=== PATIENT | female | born 1990 | race African-American/Black ===

== ENCOUNTER 2019-10-19 17:39 | Emergency (ER) | payer OTHER, SELFPAY ==
--- NOTE | 2019-10-19 18:11 | ER ---
Nurse's Notes [facility] Name: Valeri Altamirano Age: 29 yrs Sex: Female : 1990 Arrival Date: 10/19/2019 Time: 17:42 Bed 17 Private MD: Diagnosis: Acute pharyngitis;Dental root caries Presentation: 10/19 17:44 Presenting complaint: Patient states: throat, left tonsil, left upper back tooth and jl7 left ear started hurting last night and is worse today. Transition of care: patient was not received from another setting of care. Onset of symptoms was October 18, 2019. Risk Assessment: Do you want to hurt yourself or someone else? Patient reports no desire to harm self or others. Initial Sepsis Screen: Does the patient meet any 2 criteria? No. Patient's initial sepsis screen is negative. Does the patient have a suspected source of infection? No. Patient's initial sepsis screen is negative. Care prior to arrival: None. 17:44 Method Of Arrival: Ambulatory [facility] 17:44 Acuity: MALIK 4 jl7 Triage Assessment: 17:46 General: Appears in no apparent distress. uncomfortable, Behavior is calm, cooperative, jl7 appropriate for age. Pain: Complains of pain in upper left third molar Pain currently is 8 out of 10 on a pain scale. EENT: Reports pain when swallowing Pain is 8 out of 10 on a pain scale. 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 - Social history:: Smoking status: Patient uses tobacco products, smokes one-half pack cigarettes per day. - Ebola Screening: : No symptoms or risks identified at this time. Screenin:06 Abuse screen: Denies threats or abuse. Denies injuries from another. Nutritional bp screening: No deficits noted. Tuberculosis screening: No symptoms or risk factors identified. Fall Risk None identified. Assessment: 17:46 General: SEE TRIAGE NOTE. bp 18:23 Reassessment: PT D/C HOME AMBULATORY WITH FAMILY, DX WITH PHARYNGITIS AND DENTAL ROOT bp CARIES. Vital Signs: 17:46 BP 120 / 84; Pulse 64; Resp 16 S; Temp 98.6(O); Pulse Ox 100% on R/A; Pain 8/10; jl7 18:23 BP 132 / 75; Pulse 76; Resp 16; Temp 98.5; Pulse Ox 99% ; bp ED Course: 17:42 Patient arrived in ED. as 17:46 Triage completed. jl7 17:46 Arm band placed on right wrist. Patient placed in an exam room, on a stretcher, in view jl7 of staff members. 17:59 John Pearce MD is Attending Physician. sonido 17:59 Ananda Oropeza PA is PHCP. jrLurdes 18:06 Jd Pastor, RN is Primary Nurse. bp 18:06 Patient has correct armband on for positive identification. Bed in low position. Call bp light in reach. Side rails up X2. 18:23 No provider procedures requiring assistance completed. Patient did not have IV access bp during this emergency room visit. Administered Medications: 18:10 Drug: TORadol - Ketorolac 15 mg Route: IM; Site: left deltoid; bp 18:25 Follow up: Response: Pain is decreased bp Outcome: 18:10 Discharge ordered by . chelsea 18:24 Discharged to home ambulatory, with family. bp 18:24 Condition: stable 18:24 Discharge instructions given to patient, Instructed on discharge instructions, follow up and referral plans. medication usage, Demonstrated understanding of instructions, follow-up care, medications, Prescriptions given X 1. 18:25 Patient left the ED. bp Signatures: John Pearce MD MD cha Martinez, Amelia as Roszak, Josh, PA PA jrWilliam Nunez, RITA RN jlJd Guzman, RN RN bp
--- NOTE | 2019-10-19 18:11 | EDPHYS ---
Physician Documentation [facility] Name: Valeri Altamirano Age: 29 yrs Sex: Female : 1990 Arrival Date: 10/19/2019 Time: 17:42 Bed 17 Private MD: ED Physician John Pearce HPI: 10/19 18:07 This 29 yrs old Black Female presents to ER via Ambulatory with complaints of Toothache.jr8 18:07 The patient presents with pain, redness, swelling. The problem is located in the mouth. jr8 Onset: The symptoms/episode began/occurred acutely, today. Modifying factors: The symptoms are alleviated by nothing, the symptoms are aggravated by chewing, cold fluids, food. Associated signs and symptoms: Pertinent positives: pain, tonsilar pain on left side. Severity of symptoms: At their worst the symptoms were moderate, in the emergency department the symptoms are unchanged. It is unknown whether or not the patient has had similar symptoms in the past. The patient has not recently seen a physician. 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 - Social history:: Smoking status: Patient uses tobacco products, smokes one-half pack cigarettes per day. - Ebola Screening: : No symptoms or risks identified at this time. ROS: 18:07 Constitutional: Negative for fever, chills, and weight loss. jr8 18:07 ENT: Positive for Gum pain sore throat, Teeth pain 18:07 All other systems are negative. Exam: 18:07 Eyes: Pupils equal round and reactive to light, extra-ocular motions intact. Lids and jr8 lashes normal. Conjunctiva and sclera are non-icteric and not injected. Cornea within normal limits. Periorbital areas with no swelling, redness, or edema. Neck: Trachea midline, no thyromegaly or masses palpated, and no cervical lymphadenopathy. Supple, full range of motion without nuchal rigidity, or vertebral point tenderness. No Meningismus. Cardiovascular: Regular rate and rhythm with a normal S1 and S2. No gallops, murmurs, or rubs. Normal PMI, no JVD. No pulse deficits. Respiratory: Lungs have equal breath sounds bilaterally, clear to auscultation and percussion. No rales, rhonchi or wheezes noted. No increased work of breathing, no retractions or nasal flaring. Abdomen/GI: Soft, non-tender, with normal bowel sounds. No distension or tympany. No guarding or rebound. No evidence of tenderness throughout. Back: No spinal tenderness. No costovertebral tenderness. Full range of motion. Skin: Warm, dry with normal turgor. Normal color with no rashes, no lesions, and no evidence of cellulitis. MS/ Extremity: Pulses equal, no cyanosis. Neurovascular intact. Full, normal range of motion. Neuro: Awake and alert, GCS 15, oriented to person, place, time, and situation. Cranial nerves II-XII grossly intact. Motor strength 5/5 in all extremities. Sensory grossly intact. Cerebellar exam normal. Normal gait. 18:07 ENT: Exam is negative for earache, ear discharge, TM abnormalities, nasal discharge, Mouth: Lips: moist, Oral mucosa: pink and intact, moist, Gums: pink, Tongue: is moist, Posterior pharynx: Airway: patent, Tonsils: with erythema, Uvula: midline, swelling, is not appreciated, erythema, that is mild, Dental exam: Poor dentition with diffuse cavities and dental decay noted. Gum swelling to lower left jaw noted without abscess formation . Vital Signs: 17:46 BP 120 / 84; Pulse 64; Resp 16 S; Temp 98.6(O); Pulse Ox 100% on R/A; Pain 8/10; jl7 18:23 BP 132 / 75; Pulse 76; Resp 16; Temp 98.5; Pulse Ox 99% ; bp MDM: 17:59 Patient medically screened. [facility] 18:09 Data reviewed: vital signs, nurses notes, and as a result, I will discharge patient. jr8 Data interpreted: Pulse oximetry: on room air is 100 %. Interpretation: normal. Counseling: I had a detailed discussion with the patient and/or guardian regarding: the historical points, exam findings, and any diagnostic results supporting the discharge/admit diagnosis, the need for outpatient follow up, a dentist, to return to the emergency department if symptoms worsen or persist or if there are any questions or concerns that arise at home. Administered Medications: 18:10 Drug: TORadol - Ketorolac 15 mg Route: IM; Site: left deltoid; bp 18:25 Follow up: Response: Pain is decreased bp Disposition: 10/20 10:32 Co-signature as Attending Physician, John Pearce MD I agree with the assessment and sonido plan of care. Disposition: 10/19/19 18:10 Discharged to Home. Impression: Acute pharyngitis, Dental root caries. - Condition is Stable. - Discharge Instructions: Dental Caries, Adult, Pharyngitis. - Prescriptions for Amoxicillin 875 mg Oral Tablet - take 1 tablet by ORAL route every 12 hours for 10 days; 20 tablet. - Medication Reconciliation Form, Thank You Letter, Antibiotic Education, Prescription Opioid Use form. - Follow up: Private Physician; When: 1 week; Reason: Recheck today's complaints, Continuance of care, Re-evaluation by your physician. - Problem is new. - Symptoms have improved. Signatures: Jhon Pearce MD MD cha Roszak, Josh, PA PA jr8 William Victoria, RN RN jl7 Jd Pastor, RN RN bp Corrections: (The following items were deleted from the chart) 10/19 18:25 18:10 10/19/2019 18:10 Discharged to Home. Impression: Acute pharyngitis; Dental root bp caries. Condition is Stable. Forms are Medication Reconciliation Form, Thank You Letter, Antibiotic Education, Prescription Opioid Use. Follow up: Private Physician; When: 1 week; Reason: Recheck today's complaints, Continuance of care, Re-evaluation by your physician. Problem is new. Symptoms have improved. jr8
[2019-10-19] MEDS ORDERED: KETOROLAC 30 MG/ML INJ ONE (18:12)
[2019-10-19 21:46] VITALS: BP 132/75; TEMP 98.5; O2SAT 99
== END 2019-10-19 18:25 | disposition home or self-care (01) ==
LOC: ER 17:39
DX: K02.7 Dental root caries (principal); J02.9 Acute pharyngitis, unspecified; F17.210 Nicotine dependence, cigarettes, uncomplicated
CPT/HCPCS: 96372; 99283

== ENCOUNTER 2020-06-02 19:35 | Emergency (ER) | payer SELFPAY ==
--- OUTSIDE RECORDS SUMMARY | 2020-06-02 19:37 | XMS REPORT | Continuity of Care Document ---
:1990 Author Organization [facility] t Address [address] [place] [address] Care Team Providers Name Role Phone Unavailable Unavailable Unavailable Problems Condition Condition Condition Status Onset Resolution Last Treating Co mments Source Name Details Category Date Date Treatment Clinician Date Acute Acute Problem Active [facility] cervicitis Cervicitis 5-24 da 00:00: Medical 00 Group Family Family Problem Active [facility] history of History of 5-03 da anencephal Anencephal 00:00: Me dical y y 00 Group Problem Active [facility] 5-03 da 00:00: Medical 00 Group Late entry Late Entry Problem Active [facility] into into 5-03 da 00:00: Medica l care Care 00 Group Problem Active [facility] screening Screening 5-03 da 00:00: Medical 00 Group Threatened Threatened Problem Active [facility] premature Premature 5-19 da labor - Labor - 00:00: Medical not Not 00 Group delivered Delivered 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 Social History Smoking Status Start Date Stop Date Source Light Tobacco Smoker [facility]ique [facility] Medications Ordered Filled Start Stop Current Ordering Indication Dosage Frequency Signature Comments Components Source Medication Medication Date Date Medication? Clinician (SIG) Name Name Freddy CitraNatal No 1dose Q1D CitraNatal [facility] Assure 35 Assure 35 pk(s) Assure 35 da mg iron-1 mg iron-1 mg iron-1 Medical mg-50 mg-50 mg-50 Group mg-300 mg mg-300 mg mg-300 mg oral pack oral pack oral pack Take 1 dose Take 1 dose Take 1 pk every pk every dose pk day by oral day by oral every day route as route as by oral directed. directed. route as directed. clindamycin clindamycin No 1capsul TID clindamyci [facility] HCl 300 mg HCl 300 mg e(s) n HCl 300 da capsule capsule mg capsule Med ical Take 1 Take 1 Take 1 Group capsule 3 capsule 3 capsule 3 times a day times a day times a by oral by oral day by route for 7 route for 7 oral route days. days. for 7 days. Vital Signs Vital Name Observation Time Observation Value Comments Source BP Diastolic 2019-04-11 00:00:00 64 [facility]Hg[facility] Height 2019-04-11 00:00:00 60 [in_i] [facility] BMI (Body Mass 2019-04-11 00:00:00 25.6 kg/m2 [facility]) Group BP Systolic 2019-04-11 00:00:00 105 mm[Hg] [facility] Body Weight 2019-04-11 00:00:00 131 [lb_av] [facility] BP Diastolic 2019-03-28 00:00:00 55 mm[Hg] [facility] Height 2019-03-28 00:00:00 60 [in_i] [facility] BP Systolic 2019-03-28 00:00:00 93 mm[Hg] [facility] Body Weight 2019-03-28 00:00:00 126.5 [lb_av] [facility] BP Diastolic 2019-03-07 00:00:00 67 mm[Hg] [facility] Height 2019-03-07 00:00:00 60 [in_i] [facility] BMI (Body Mass 2019-03-07 00:00:00 24.8 kg/m2 [facility] BP Systolic 2019-03-07 00:00:00 100 mm[Hg] [facility] Body Weight 2019-03-07 00:00:00 127 [lb_av] [facility] Procedures Procedure Date / Time Performed Performing Clinician [facility] e US, obstetric, limited 2019-04-11 00[facility]00:00 [facility] ULTRASOUND REPEAT 2019-03-07 00:00:00 [facility] Plan of Care Planned Activity Planned Date Details Comments Source Diagnostic Test 2019-04-11 CBC w/ auto diff [facility] Pending 00:00:00 [code = CBC w/ Group auto diff] Diagnostic Test 2019-04-11 urinalysis, [facility] Pending 00:00:00 dipstick [code = Group urinalysis, dipstick] Encounters Start End Encounter Admission Attending Care Care Encounter Source Date/Time Date/Time Type Type Clinicians Facility Department ID 2019-04-11 2019-04-11 Xavier [place] - [id number] [facility] 00:00:00 00:00:00 [facility] marimar Duffy MD: [address] [place] [id number] , Ph. [phone] 2019-03-28 2019-03-28 Xavier [place] - [id number] [facility] 00:00:00 00:00:00 Discovery marimar Duffy MD: [address] [place] [phone] , Ph. [phone] 2019-03-07 2019-03-07 Valencia ACUÑA [place] - [id number] M [facility] 00:00:00 00:00:00 [facility] PANIAGUA: [address] [place] [phone] , Ph. [phone] Results Test Description Test Time Test Comments Results Result Comments Source Urinalysis macro (dipstick) panel - Urine 2019-04-11 15:19:5 1 Test Item Value Reference Range Interpretation Comme nts Leukocytes (test code = Leukocytes) Small Nitrite (test code = Nitrite) negative Urobilinogen (test code = Urobilinogen) .2 Protein (test code = Protein) 30 pH (test code = pH) 7.0 Blood (test code = Blood) Negative Specific [place] (test code = Specific [place]) 1.025 Ketone (test code = Ketone) Negative Bilirubin (test code = Bilirubin) Negative Glucose (test code = Glucose) Negative Appearance (test code = Appearance) Clear Color (test code = Color) Yellow [facility] (dipstick) panel - [id number] 13:56:00 Test Item Value Reference Range Interpretation Comments Leukocytes (test code = Leukocytes) Moderate Nitrite (test code = Nitrite) negative Urobilinogen (test code = 1 Urobilinogen) Protein (test code = Protein) 30 pH (test code = pH) 7.0 Blood (test code = Blood) Negative Specific [place] (test code = 1.020 Specific [place]) Ketone (test code = Ketone) Negative Bilirubin (test code = Bilirubin) Negative Glucose (test code = Glucose) Negative Appearance (test code = Appearance) Clear Color (test code = Color) Yellow [facility] macro (dipstick) panel - [id number] 13:56:00 Test Item Value Reference Range Interpretation Comments Leukocytes (test code = Leukocytes) Moderate Nitrite (test code = Nitrite) negative Urobilinogen (test code = 1 Urobilinogen) Protein (test code = Protein) 30 pH (test code = pH) 7.0 Blood (test code = Blood) Negative Specific [place] (test code = 1.020 Specific [place]) Ketone (test code = Ketone) Negative Bilirubin (test code = Bilirubin) Negative Glucose (test code = Glucose) Negative Appearance (test code = Appearance) Clear Color (test code = Color) Yellow [facility] identified in Urine by [id number] 00:00:00 Test Item Value Reference Range Interpretation Comments Bacteria identified in no growth at 48 hrs. Urine by Culture (test code = 630-4) [facility]
[2020-06-02 20:23] LABS: Basophils % 0.4 % (0-1.3); Hematocrit 38.2 % (36.0-45.0); Lymphocytes % 44.9 % (15.3-44.8); MPV 9.1 fL (7.6-11.3); RBC Red Blood Cell Count 4.37 M/uL (3.86-4.86)
[2020-06-02 20:50] LABS: BUN Blood Urea Nitrogen 9 mg/dL (7-18); Bicarbonate 25 mmol/L (21-32); Glucose Level 90 mg/dL (74-106); NT PRO-BNP 40 pg/mL (<125); Potassium 3.7 mmol/L (3.5-5.1); Sodium Level 140 mmol/L (136-145); Troponin (Emerg Dept Use Only) < 0.02 ng/mL (0.0-0.045)
[2020-06-02 20:55] LABS: Urine Blood NEGATIVE (NEG); Urine Glucose NEGATIVE (NEG); Urine Protein NEGATIVE (NEG); Urine Specific Gravity 1.025 (1.005-1.030); Urine pH 6.5 (5.0-7.0)
--- NOTE | 2020-06-02 21:05 | RAD REPORT ---
EXAM DESCRIPTION: RAD - Chest Single View - 06/02/2020 8:38 pm CLINICAL HISTORY: CHEST PAIN COMPARISON: None TECHNIQUE: AP portable chest image was obtained 06/02/2020 8:38 pm . FINDINGS: No focal mass or consolidation. Interstitial pattern is believed be baseline for the patie nt. Heart and vasculature are normal. No measurable pleural effusion and no pneumothorax. No acute servando ny abnormality seen. No acute aortic findings suspected. IMPRESSION: No acute cardiopulmonary process.
--- NOTE | 2020-06-02 22:01 | ER ---
Nurse's Notes [facility] Name: Valeri Altamirano Age: 29 yrs Sex: Female : 1990 Arrival Date: 06/02/2020 Time: 19:37 Bed 8 Private MD: Diagnosis: Chest pain, unspecified Presentation: 06/02 19:54 Chief complaint: Patient states: Chest pain, described as pressure started yesterday. ca1 Intermittent, non-radiating, more on the L side and midsternal. Denies SOB/N/Dizziness. Coronavirus screen: Patient denies a cough. Patient denies shortness of breath or difficulty breathing. Patient denies measured and/or subjective temperature greater than 100.4F prior to today's visit. Patient denies travel on a cruise ship or to a country the [facility] currently lists as an affected area. Patient denies contact with known and/or suspected case of COVID-19. Proceed with normal triage. Ebola Screen: Patient negative for fever greater than or equal to 101.5 degrees Fahrenheit, and additional compatible Ebola Virus Disease symptoms Patient denies exposure to infectious person. Patient denies travel to an Ebola-affected area in the 21 days before illness onset. No symptoms or risks identified at this time. Initial Sepsis Screen: Does the patient meet any 2 criteria? No. Patient's initial sepsis screen is negative. Does the patient have a suspected source of infection? No. Patient's initial sepsis screen is negative. Risk Assessment: Do you want to hurt yourself or someone else? Patient reports no desire to harm self or others. Onset of symptoms was June 02, 2020. 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 - Social history:: Smoking status: Patient reports the use of cigarette tobacco products, smokes one-half pack cigarettes per day. - Family history:: not pertinent. - Hospitalizations: : No recent hospitalization is reported. Screenin:00 Abuse screen: Denies threats or abuse. Nutritional screening: No deficits noted. ea Tuberculosis screening: No symptoms or risk factors identified. Fall Risk None identified. Assessment: 19:59 General: Appears in no apparent distress. Behavior is calm, cooperative, appropriate ea for age. Pain: Complains of pain in mid-sternal area and left breast Pain does not radiate. Quality of pain is described as pressure, Pain began reports chest pain has been off and on for about three months. Neuro: Level of Consciousness is awake, alert, obeys commands, Oriented to person, place, time, situation. Cardiovascular: Patient's skin is warm and dry. Respiratory: Airway is patent Respiratory effort is even, unlabored, Respiratory pattern is regular, symmetrical. Derm: Skin is pink, warm \T\ dry. 21:11 Reassessment: Patient and/or family updated on plan of care and expected duration. Pain ea level reassessed. Patient is alert, oriented x 3, equal unlabored respirations, skin warm/dry/pink. 22:16 Reassessment: Patient appears in no apparent distress at this time. Patient denies pain mg2 at this time. Patient states feeling better. 22:16 Reassessment: Patient and/or family updated on plan of care and expected duration. Pain ea level reassessed. Patient is alert, oriented x 3, equal unlabored respirations, skin warm/dry/pink. Discharge instruction given to patient, verbalized the understanding of instruction. Vital Signs: 19:54 BP 94 / 75; Pulse 75; Resp 15 S; Temp 98.7(TE); Pulse Ox 100% on R/A; Weight 54.43 kg ca1 (R); Height 5 ft. 0 in. (152.40 cm) (R); 21:14 Pulse 62; Resp 18; Pulse Ox 100% on R/A; mg2 22:10 BP 93 / 74; Pulse 70; Resp 18; Temp 98.5(O); Pulse Ox 100% on R/A; mg2 19:54 Body Mass Index 23.44 (54.43 kg, 152.40 cm) ca1 ED Course: 19:37 Patient arrived in ED. bp1 19:55 Triage completed. ca1 19:56 Arm band placed on right wrist. ca1 19:58 Alexander Taylor MD is Attending Physician. rn 20:00 Patient has correct armband on for positive identification. Placed in gown. Bed in low ea position. Call light in reach. monitor and storage bin tender on. Pulse ox on. NIBP on. 20:00 Patient maintains SpO2 saturation greater than 95% on room air. ea 20:01 No provider procedures requiring assistance completed. Inserted saline lock: 20 gauge mg2 in right antecubital area, using aseptic technique. Blood collected. 20:05 Adwoa Harding, RN is Primary Nurse. ea 20:38 XRAY Chest (1 view) In Process Unspecified. EDMS 22:17 IV discontinued, intact, bleeding controlled, No redness/swelling at site. Pressure ea dressing applied. Administered Medications: No medications were administered Outcome: 22:00 Discharge ordered by . rn 22:17 Discharged to home ambulatory. ea 22:17 Condition: stable 22:17 Discharge instructions given to patient, Instructed on discharge instructions, follow up and referral plans. Demonstrated understanding of instructions, follow-up care. 22:17 Patient left the ED. ea Signatures: Dispatcher [employer] EDMS Alexander Taylor MD MD rn Antunez, Elena, RN RN Conner Gómez RN RN mg2 Acob, Cheryl, RN RN Marleny Canales bp1
--- NOTE | 2020-06-02 22:01 | EDPHYS ---
Physician Documentation [facility] Name: Valeri Altamirano Age: 29 yrs Sex: Female : 1990 Arrival Date: 06/02/2020 Time: 19:37 Bed 8 Private MD: ED Physician Alexander Taylor HPI: 06/02 21:58 This 29 yrs old Black Female presents to ER via Ambulatory with complaints of Chest rn Pressure. 21:58 The patient or guardian reports chest pain that is located primarily in the anterior rn chest wall, left. The pain does not radiate. Associated signs and symptoms: The patient has no apparent associated signs or symptoms, Pertinent negatives: abdominal pain, cough, diaphoresis, lower extremity swelling, near syncope, palpitations, shortness of breath, syncope, vomiting. The chest pain is described as aching. Duration: The patient or guardian reports multiple episodes, that are intermittent. Modifying factors: The symptoms are alleviated by nothing. the symptoms are aggravated by deep breath. Severity of pain: At its worst the pain was mild in the emergency department the pain has resolved. The patient has experienced similar episodes in the past. Reports several months of left sided chest pain, + smoker, no medical problems, no trauma, no fever/cough/sob. No famhx of early cardiac problems.. 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 - Social history:: Smoking status: Patient reports the use of cigarette tobacco products, smokes one-half pack cigarettes per day. - Family history:: not pertinent. - Hospitalizations: : No recent hospitalization is reported. ROS: 21:58 Constitutional: Negative for fever, chills, and weight loss, Eyes: Negative for injury, rn pain, redness, and discharge, Neck: Negative for injury, pain, and swelling, Cardiovascular: Negative for palpitations, and edema, Respiratory: Negative for shortness of breath, cough, wheezing Abdomen/GI: Negative for abdominal pain, nausea, vomiting, diarrhea, and constipation, MS/Extremity: Negative for injury and deformity, Skin: Negative for injury, rash, and discoloration, Neuro: Negative for headache, weakness, numbness, tingling, and seizure. Exam: 21:58 Constitutional: This is a well developed, well nourished patient who is awake, alert, rn and in no acute distress. Head/Face: Normocephalic, atraumatic. Eyes: Pupils equal round and reactive to light, extra-ocular motions intact. Lids and lashes normal. Conjunctiva and sclera are non-icteric and not injected. Cornea within normal limits. Periorbital areas with no swelling, redness, or edema. Cardiovascular: Regular rate and rhythm. No pulse deficits. Respiratory: No increased work of breathing, no retractions or nasal flaring. Abdomen/GI: soft, non-tender MS/ Extremity: Pulses equal, no cyanosis. Neurovascular intact. Full, normal range of motion. Equal circumference. Neuro: Awake and alert, GCS 15, oriented to person, place, time, and situation. Cranial nerves II-XII grossly intact. Motor strength 5/5 in all extremities. Sensory grossly intact. 21:58 ECG was reviewed by the Attending Physician. rn Vital Signs: 19:54 BP 94 / 75; Pulse 75; Resp 15 S; Temp 98.7(TE); Pulse Ox 100% on R/A; Weight 54.43 kg ca1 (R); Height 5 ft. 0 in. (152.40 cm) (R); 21:14 Pulse 62; Resp 18; Pulse Ox 100% on R/A; mg2 22:10 BP 93 / 74; Pulse 70; Resp 18; Temp 98.5(O); Pulse Ox 100% on R/A; mg2 19:54 Body Mass Index 23.44 (54.43 kg, 152.40 cm) ca1 MDM: 19:58 Patient medically screened. rn 21:58 Differential diagnosis: acute pericarditis, anxiety, chest wall pain, costochondritis, rn esophagitis, gastroesophageal reflux disease (GERD), pleurisy, pneumothorax, pulmonary embolus. Data reviewed: vital signs, nurses notes, lab test result(s), EKG, radiologic studies, plain films, and as a result, I will discharge patient. Counseling: I had a detailed discussion with the patient and/or guardian regarding: the historical points, exam findings, and any diagnostic results supporting the discharge/admit diagnosis, lab results, radiology results, the need for outpatient follow up, to return to the emergency department if symptoms worsen or persist or if there are any questions or concerns that arise at home. Special discussion: Based on the patient's history, exam, and Dx evaluation, there is no indication for emergent intervention or inpatient Tx. It is understood by the patient/guardian that if the Sx's persist or worsen they need to return immediately for re-evaluation. I discussed with the patient/guardian in detail that at this point there is no indication for admission to the hospital. It is understood, however, that if the symptoms persist or worsen the patient needs to return immediately for re-evaluation. 22:01 Counseling: I had a detailed discussion with the patient and/or guardian regarding: rn smoking cessation. 06/02 20:04 Order name: Basic Metabolic Panel; Complete Time: :06/02 20:04 Order name: CBC with Diff; Complete Time: 06/02 20:04 Order name: NT PRO-BNP; Complete Time: :06/02 20:04 Order name: Troponin (emerg Dept Use Only); Complete Time: :06/02 20:04 Order name: D-Dimer; Complete Time: :06/02 20:45 Order name: Urine Dipstick--Ancillary (enter results); Complete Time: :06/02 20:04 Order name: XRAY Chest (1 view); Complete Time: :06/02 20:04 Order name: EKG; Complete Time: 20:06/02 20:04 Order name: Cardiac monitoring; Complete Time: 20:06/02 20:04 Order name: EKG - Nurse/Tech; Complete Time: :06/02 20:04 Order name: IV Saline Lock; Complete Time: :06/02 20:04 Order name: Labs collected and sent; Complete Time: :06/02 20:04 Order name: O2 Per Protocol; Complete Time: :06/02 20:45 Order name: Urine --Ancillary (enter results); Complete Time: :06/02 20:04 Order name: O2 Sat Monitoring; Complete Time: 20:06/02 20:04 Order name: Urine Test (obtain specimen); Complete Time: 20:34 rn EC:58 Rate is 71 beats/min. Rhythm is regular. QRS [place] is Normal. AL interval is normal. QT rn interval is normal. No Q waves. T waves are Normal. No ST changes noted. Clinical impression: Normal ECG. Interpreted by me. Reviewed by me. Administered Medications: No medications were administered Disposition: 06/02/20 22:00 Discharged to Home. Impression: Chest pain, unspecified. - Condition is Stable. - Discharge Instructions: Nonspecific Chest Pain, Pleurisy, Steps to Quit Smoking. - Medication Reconciliation Form, Thank You Letter, Antibiotic Education, Prescription Opioid Use, Work release form form. - Follow up: Private Physician; When: As needed; Reason: Recheck today's complaints, Re-evaluation by your physician. - Problem is an ongoing problem. - Symptoms have improved. Signatures: Dispatcher [employer] EDMS Alexander Taylor MD MD rn Antunez, Elena, RN RN ea Acob, Cheryl, RN RN ca1 Corrections: (The following items were deleted from the chart) 22:17 22:00 06/02/2020 22:00 Discharged to Home. Impression: Chest pain, unspecified. ea Condition is Stable. Forms are Medication Reconciliation Form, Thank You Letter, Antibiotic Education, Prescription Opioid Use. Follow up: Private Physician; When: As needed; Reason: Recheck today's complaints, Re-evaluation by your physician. Problem is an ongoing problem. Symptoms have improved. rn
[2020-06-02 22:37] VITALS: O2SAT 100
[2020-06-02 22:39] VITALS: BP 93/74; TEMP 98.5
== END 2020-06-02 22:17 | disposition home or self-care (01) ==
LOC: ER 19:35
DX: R07.9 Chest pain, unspecified (principal); F17.210 Nicotine dependence, cigarettes, uncomplicated
CPT/HCPCS: 36415; 71045; 80048; 81003; 81025; 83880; 84484; 85025; 85379; 93005

== ENCOUNTER 2021-04-18 10:21 | Emergency (ER) | payer SELFPAY ==
[2021-04-18 11:04] LABS: Urine Blood Negative (Negative); Urine Glucose Negative (Negative); Urine Protein Negative (Negative); Urine Specific Gravity >=1.030 (1.005-1.030)
[2021-04-18 12:00] LABS: Urine Specific Gravity/Preg >1.030 (1.005-1.030)
--- NOTE | 2021-04-18 12:08 | EDPHYS ---
Physician Documentation [facility] Name: Valeri Altamirano Age: 30 yrs Sex: Female : 1990 Arrival Date: 04/18/2021 Time: 10:24 Bed 24 Private MD: ED Physician John Pearce HPI: 04/18 12:50 This 30 yrs old Black Female presents to ER via Ambulatory with complaints of Abdominal kb Cramping. 12:50 The patient has not recently seen a physician. kb 12:50 The patient presents with cramping to suprapubic area. Onset: The symptoms/episode kb began/occurred today. The symptoms do not radiate. Associated signs and symptoms: none. The symptoms are described as crampy. Modifying factors: The symptoms are alleviated by nothing, the symptoms are aggravated by nothing. Severity of pain: At its worst the pain was mild in the emergency department the pain is unchanged. The patient has not experienced similar symptoms in the past. Pt reports she missed her period and is having cramps to suprapubic area. States she took 2 tests at home and they were negative. 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 - Social history:: Smoking status: Patient reports the use of cigarette tobacco products, smokes one-half pack cigarettes per day. ROS: 12:08 Constitutional: Negative for fever, chills, and weight loss. kb 12:08 Abdomen/GI: Positive for abdominal cramps, of the suprapubic area, Negative for nausea, vomiting, and diarrhea. 12:08 All other systems are negative. Exam: 12:08 Constitutional: This is a well developed, well nourished patient who is awake, alert, kb and in no acute distress. Head/Face: Normocephalic, atraumatic. ENT: Moist Mucous membranes Respiratory: Respirations even and unlabored. No increased work of breathing, no retractions or nasal flaring. Skin: Warm, dry with normal turgor. Normal color. MS/ Extremity: Pulses equal, no cyanosis. Neurovascular intact. Full, normal range of motion. Neuro: Awake and alert, GCS 15, oriented to person, place, time, and situation. Moves all extremities. Normal gait. Psych: Awake, alert, with orientation to person, place and time. Behavior, mood, and affect are within normal limits. 12:08 Abdomen/GI: Inspection: abdomen appears normal, Bowel sounds: normal, Palpation: soft, in all quadrants, nontender, in the right upper quadrant, left upper quadrant, right lower quadrant and left lower quadrant, mild abdominal tenderness, in the suprapubic area. Vital Signs: 10:33 BP 115 / 73; Pulse 87; Resp 15; Temp 98.2(TE); Pulse Ox 99% on R/A; Pain 0/10; ss 10:57 BP 101 / 69; Pulse 78; Resp 16; Pulse Ox 100% on R/A; vg1 12:11 BP 107 / 74; Pulse 68; Resp 14; Pulse Ox 100% on R/A; vg1 MDM: 10:34 Patient medically screened. kb 12:07 Data reviewed: vital signs, nurses notes. Data interpreted: Pulse oximetry: on room air kb is 100 %. Interpretation: normal. Counseling: I had a detailed discussion with the patient and/or guardian regarding: the historical points, exam findings, and any diagnostic results supporting the discharge/admit diagnosis, lab results, the need for outpatient follow up, an OB/Gyne specialist, to return to the emergency department if symptoms worsen or persist or if there are any questions or concerns that arise at home. 04/18 10:35 Order name: Urine Microscopic Only; Complete Time: 12:10 kb 04/18 11:04 Order name: Urine Dipstick-Ancillary; Complete Time: 11:05 EDMS 04/18 10:35 Order name: Urine Test (obtain specimen); Complete Time: 11:06 kb 04/18 10:35 Order name: Urine Dipstick-Ancillary (obtain specimen); Complete Time: 11:06 kb 04/18 11:04 Order name: Urine Dipstick-Ancillary EDMS 04/18 11:11 Order name: Urine --Ancillary (enter results); Complete Time: 12:01 bd Administered Medications: No medications were administered Disposition: 04/19 07:05 Co-signature as Attending Physician, John Ramses MD I agree with the assessment and sonido plan of care. Disposition: 04/18/21 12:08 Discharged to Home. Impression: state. - Condition is Stable. - Discharge Instructions: First Trimester of , [id number]. - Medication Reconciliation Form, Thank You Letter, Antibiotic Education, Prescription Opioid Use form. - Follow up: Emergency Department; When: As needed; Reason: Worsening of condition. Follow up: Private Physician; When: 2 - 3 days; Reason: Recheck today's complaints, Continuance of care, Re-evaluation by your physician. Signatures: Dispatcher [employer] EDMS Marilu Rodriguez, CISCO ENGINEER-C CISCO ENGINEER-John Foster MD MD cha Smirch, Shelby, RN RN Jenniffer Frausto RN RN vg1 Corrections: (The following items were deleted from the chart) 04/18 12:12 12:08 04/18/2021 12:08 Discharged to Home. Impression: state. Condition is vg1 Stable. Forms are Medication Reconciliation Form, Thank You Letter, Antibiotic Education, Prescription Opioid Use. Follow up: Emergency Department; When: As needed; Reason: Worsening of condition. Follow up: Private Physician; When: 2 - 3 days; Reason: Recheck today's complaints, Continuance of care, Re-evaluation by your physician. kb
--- NOTE | 2021-04-18 12:08 | ER ---
Nurse's Notes [facility] Name: Valeri Altamirano Age: 30 yrs Sex: Female : 1990 Arrival Date: 04/18/2021 Time: 10:24 Bed 24 Private MD: Diagnosis: state Presentation: 04/18 10:33 Chief complaint: Patient states: Episodic, generalized abd cramping that began "days ss ago". LMP 03/14/21. Two negative home UPTs yesterday. PT states, "I also noticed a funny smell and yellow discharge.". Coronavirus screen: Client denies travel out of the [place] in the last 14 days. Ebola Screen: Patient denies exposure to infectious person. Patient denies travel to an Ebola-affected area in the 21 days before illness onset. Initial Sepsis Screen: Does the patient meet any 2 criteria? No. Patient's initial sepsis screen is negative. Does the patient have a suspected source of infection? No. Patient's initial sepsis screen is negative. Risk Assessment: Do you want to hurt yourself or someone else? Patient reports no desire to harm self or others. Onset of symptoms was April 15, 2021. 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 - Social history:: Smoking status: Patient reports the use of cigarette tobacco products, smokes one-half pack cigarettes per day. Screenin:57 Abuse screen: Denies threats or abuse. Nutritional screening: No deficits noted. vg1 Tuberculosis screening: No symptoms or risk factors identified. Fall Risk No fall in past 12 months (0 pts). No secondary diagnosis (0 pts). No IV (0 pts). Ambulatory Aid- None/Bed Rest/Nurse Assist (0 pts). Gait- Normal/Bed Rest/Wheelchair (0 pts) Mental Status- Oriented to own ability (0 pts). Total Boucher Fall Scale indicates No Risk (0-24 pts). Assessment: 10:56 General: Appears in no apparent distress. comfortable, Behavior is calm, cooperative. vg1 Pain: Denies pain. Neuro: Level of Consciousness is awake, alert, obeys commands, Oriented to person, place, time, situation. Cardiovascular: Patient's skin is warm and dry. Respiratory: Airway is patent Respiratory effort is even, unlabored. GI: Bowel sounds present X 4 quads. Abd is soft and non tender. : Reports discharge, yellow, foul odor. EENT: No signs and/or symptoms were reported regarding the EENT system. Derm: Skin is intact, is healthy with good turgor. Musculoskeletal: No signs and/or symptoms reported regarding the musculoskeletal system. 12:12 Reassessment: Patient appears in no apparent distress at this time. Patient and/or vg1 family updated on plan of care and expected duration. Pain level reassessed. Patient is alert, oriented x 3, equal unlabored respirations, skin warm/dry/pink. Vital Signs: 10:33 BP 115 / 73; Pulse 87; Resp 15; Temp 98.2(TE); Pulse Ox 99% on R/A; Pain 0/10; ss 10:57 BP 101 / 69; Pulse 78; Resp 16; Pulse Ox 100% on R/A; vg1 12:11 BP 107 / 74; Pulse 68; Resp 14; Pulse Ox 100% on R/A; vg1 ED Course: 10:24 Patient arrived in ED. mr 10:32 Michael Marilu, KIMBERLY [facility]. kb 10:32 John Pearce MD is Attending Physician. kb 10:35 Triage completed. ss 10:36 Arm band placed on right wrist. ss 10:42 Jeni Wise, RN is Primary Nurse. iw 10:52 Jenniffer Ware, RN is Primary Nurse. vg1 10:57 Patient has correct armband on for positive identification. Bed in low position. Call vg1 light in reach. Side rails up X 1. 12:12 No provider procedures requiring assistance completed. Patient did not have IV access vg1 during this emergency room visit. Administered Medications: No medications were administered Outcome: 12:08 Discharge ordered by . kb 12:12 Discharged to home ambulatory. vg1 12:12 Condition: stable 12:12 Discharge instructions given to patient, Instructed on discharge instructions, follow up and referral plans. Demonstrated understanding of instructions, follow-up care. 12:12 Patient left the ED. vg1 Signatures: Marilu Rodriguez, KIMBERLY CARRION-Caro Neville Irene, RN RN Marysol Richmond, RN RN Jenniffer Frausto, RITA RN vg1
[2021-04-18 12:09] LABS: Urine Bacteria <20 /HPF (<20); Urine RBC NONE SEEN /HPF (NONE SEEN)
[2021-04-18 12:20] VITALS: TEMP 98.2
[2021-04-18 12:22] VITALS: O2SAT 100
[2021-04-18 12:23] VITALS: BP 107/74
== END 2021-04-18 12:12 | disposition home or self-care (01) ==
LOC: ER 10:21
DX: Z33.1 Pregnant state, incidental (principal); F17.210 Nicotine dependence, cigarettes, uncomplicated
CPT/HCPCS: 81003; 81015; 81025; 99281

== ENCOUNTER 2021-12-03 06:53 | Inpatient (IN) | payer OTHER ==
--- OUTSIDE RECORDS SUMMARY | 2021-12-03 07:03 | XMS REPORT | Continuity of Care Document ---
:1990 Author Organization [facility] t Address [address] [place] [address] Care Team Providers Name Role Phone PCP, DOES NOT HAVE A Primary Care Physician Unavailable FISH Attending Clinician Unavailable Corina HELLER Attending Clinician Unavailable Eva Rowe Attending Clinician Beverly GALLARDO Attending Clinician Unavailable Lobito KUHN Attending Clinician Unavailable Eva URRUTIA Attending Clinician Unavailable Camilla Attending Clinician Unavailable Camilla Admitting Clinician Unavailable Payers Payer Name Policy Type Policy Number Effective Date Expiration Date Maikel panchal [facility] [id number] 2021 CHOICE MEDICAID 00:00:00 [facility] [id number] 2019 [employer] [place] 00:00:00 (MEDICAID HMO) Problems Condition Condition Condition Status Onset Resolution [...] Group Problem Active [facility] screening Screening 5 da 00:00: Medical 00 Group Threatened Threatened Problem Active M [facility] premature Premature 5-19 da labor - Labor - 00:00: Medical not Not 00 Group delivered Delivered Genetic Genetic Problem Active [place] disorder Disorder 131 da carrier Carrier 00:00: Medical 00 Group Allergies, Adverse Reactions, Alerts Allergy Allergy Status Severity Reaction(s) Onset Inactive Treating Comm ents Source Name Type Date Date Clinician NO KNOWN Drug Active Univers ALLERGIE Class ity of S [facility] Social History Social Habit Start Date Stop Date Quantity Comments Source History SDOH University o f Alcohol Frequency [facility] edical Branch History SDOH University o f Alcohol Std [place] [facility] History SDOH University o f Alcohol Binge [place] [facility] History of Cigarette Smoker Universi ty of tobacco use [facility] Alcohol intake 2019-08-23 2019-08-23 Current drinker Unive rsity of 00:00:00 00:00:00 of alcohol [facility] (finding) Branch Tobacco use and 2019-02-19 2019-02-19 Never used Universit y of exposure 00:00:00 00:00:00 [facility] Alcohol Comment 2019-02-19 2019-02-19 glass of wine Univer sity of 00:00:00 00:00:00 [facility] Tobacco Comment 2019-02-19 2019-02-19 2-3 ciggs a day Univ ersity of 00:00:00 00:00:00 [facility] Sex Ass[birth year] Universit y of 00:00:00 00:00:00 [facility] Smoking Status Start Date Stop Date Source Light Tobacco Smoker [facility] Current every day smoker 2019-02-19 00:00:00 Uni versity of [facility] Medications Ordered Filled Start Stop Current Ordering Indication Dosage Frequency Signature Comments Components Source Medication Medication Date Date Medication? Clinician (SIG) Name Name [id number], Yes [id number] Take 1 Univers carb,glu-FA 02-19 09 TAB-CAP/M2 it y of -dss-dha 00:00: by mouth [place] (CITRANATAL 00 daily. Medica l DHA, ALGAL Branch OIL,) 27 mg iron-1 mg -50 mg-250 mg Cmpk CitraNatal CitraNatal No 1dose Q1D CitraNatal [place] Assure [...] oral route days. days. for 7 days. Immunizations Ordered Filled Immunization Date Status Comments [facility] e Immunization Name Name Influenza Virus 2019-02-19 Completed Universit y of Vaccine Quad .5 mL 00:00:00 [facility] 6+ MO Branch Vital Signs Vital Name Observation Time Observation Value Comments Source BP Diastolic 2019-04-11 00:00:00 64 mm[Hg] [facility] Height 2019-04-11 00:00:00 60 [in_i] [facility] BMI (Body Mass 2019-04-11 00:00:00 25.6 kg/m2 [facility]) Group BP Systolic 2019-04-11 00:00:00 105 mm[Hg] [facility] Body Weight 2019-04-11 00:00:00 131 [lb_av] [facility] BP Diastolic 2019-03-28 00:00:00 55 mm[Hg] [facility] Height 2019-03-28 00:00:00 60 [in_i] [facility] BP Systolic 2019-03-28 00:00:00 93 mm[Hg] [facility] Body Weight 2019-03-28 00:00:00 126.5 [lb_av] [facility] BP Diastolic 2019-03-07 00:00:00 67 mm[Hg] [facility] Height 2019-03-07 00:00:00 60 [in_i] [facility] BMI (Body Mass 2019-03-07 00:00:00 24.8 kg/m2 [facility] BP Systolic 2019-03-07 00:00:00 100 mm[Hg] [facility] Body Weight 2019-03-07 00:00:00 127 [lb_av] [facility] Procedures Procedure Date / Time Performed Performing Clinician [facility] e US, obstetric, limited 2019-04-11 00:00:00 [facility] ULTRASOUND REPEAT 2019-03-07 00:00:00 [facility] Plan of Care Planned Activity Planned Date Details Comments Source Diagnostic Test 2019-04-11 CBC w/ auto diff [facility] Pending 00:00:00 [code = CBC w/ Group auto diff] Diagnostic Test 2019-04-11 urinalysis, Dominique [facility] dical Pending 00:00:00 dipstick [code = Group urinalysis, dipstick] Encounters Start End Encounter Admission Attending Care Care Encounter Source Date/Time Date/Time Type Type Clinicians Facility Department ID 2021-11-28 2021-11-28 Outpatient R CRISTIAN PHILIP [facility] [id number] Univers 14:30:00 14:30:00 [id number] [facility] 2021-11-28 2021-11-28 Outpatient R [facility] [id number] Univers [facility]:30[facility] 2021-11-14 Outpatient R AKINSIPE, [facility] [id number] Univers 13:30:00 13:30:00 DESMOND [id number] yungy o f [facility] 2021-11-14 2021-11-14 Outpatient R AKINSIPE, [facility] [id number] Univers 13:00:00 13:00:00 DESMOND hernandez o f [facility] 2021-10-31 2021-10-31 Outpatient R AKINSIPE, [facility] [id number] Univers 13:00:00 13:00:00 DESMOND [id number] ity o f [facility] 2021-10-21 2021-10-21 [id number] Univers 00:00:00 00:00:00 Shazia Velasquez SHEET TESTER [id number] ity [facility] [id number] Maninder as MATERNAL [id number] Med ical & CHILD [address] [place] [address] 2021-10-20 2021-10-20 [facility] [id number] Univers 12:45:00 12:45:00 DAVID [id number] [facility] 2021-10-12 2021-10-12 Outpatient R [facility] [id number] Univers 13:15:00 13:15:00 [id number] [facility] 2021-10-12 2021-10-12 Outpatient [facility] [id number] Univers 12:45:00 12:45:00 CHEPE ity o f [facility] 2021-05-17 2021-05-17 [facility] [id number] Univers 11:00:00 11:00:00 SHAZIA [id number] ity o f [facility] 2021-05-17 2021-05-17 Outpatient R [facility] [id number] Univers 10:30:00 10:30:00 [facility] 2021-05-02 2021-05-02 [facility] [id number] Univers 11:15:00 11:15:00 SHAZIA [id number] ity o f [facility] 2020-09-22 2020-09-22 Outpatient G_Pappas [facility] [id number] [place] 02:19:00 02:19:00 1118 Medical [facility] 2019-06-26 2019-06-26 [facility]patient [facility] [id number] [place] 10:58:00 10:58:00 0520 Medical [facility] 2019-04-11 2019-04-11 Xavier [facility] [place] - [id number] M [facility] 00:00:00 00:00:00 Discovery marimar Wan MD: [address] [place] [phone] , Ph. [phone] 2019-03-28 2019-03-28 Xavier [facility] [place] - [id number] M [facility] 00:00:00 00:00:00 Discovery marimar Wan MD: [address] [place] [phone] , Ph. [phone] 2019-03-07 2019-03-07 Valencia [facility] [place] - [id number] M [facility] 00:00:00 00:00:00 Bret [facility] marie MD: [address] [place] [phone] , Ph. [phone] Results Test Description Test Time Test Comments [...] Blood (test code = Blood) Negative Specific Cardwell (test code = Specific Cardwell) 1.025 Ketone (test code = Ketone) Negative Bilirubin (test code = Bilirubin) Negative Glucose (test code = Glucose) Negative Appearance (test code = Appearance) Clear Color (test code = Color) Yellow [facility] (dipstick) panel - [id number] 13:56:00 Test Item Value Reference Range Interpretation Comments Leukocytes (test code = Leukocytes) Moderate Nitrite (test code = Nitrite) negative Urobilinogen (test code = 1 Urobilinogen) Protein (test code = Protein) 30 pH (test code = pH) 7.0 Blood (test code = Blood) Negative Specific Cardwell (test code = 1.020 Specific Cardwell) Ketone (test code = Ketone) Negative Bilirubin (test code = Bilirubin) Negative Glucose (test code = Glucose) Negative Appearance (test code = Appearance) Clear Color (test code = Color) Yellow [facility] macro (dipstick) panel - [id number] 13:56:00 Test Item Value Reference Range Interpretation Comments Leukocytes (test code = Leukocytes) Moderate Nitrite (test code = Nitrite) negative Urobilinogen (test code = 1 Urobilinogen) Protein (test code = Protein) 30 pH (test code = pH) 7.0 Blood (test code = Blood) Negative Specific Cardwell (test code = 1.020 Specific Cardwell) Ketone (test code = Ketone) Negative Bilirubin (test code = Bilirubin) Negative Glucose (test code = Glucose) Negative Appearance (test code = Appearance) Clear Color (test code = Color) Yellow [facility] Hospital[facility] identified in Urine by [id number] 00:00:00 Test Item Value Reference Range Interpretation Comments Bacteria identified in no growth at 48 hrs. Urine by Culture (test code = 630-4) [facility]
[2021-12-03] MEDS ORDERED: OXYTOCIN/LR 20 UNIT/1,000 ML BAG IV ONE (07:07)
[2021-12-03] MEDS ORDERED: METHYLERGONOVINE 0.2MG/ML AMP IM ONE (07:07)
[2021-12-03] MEDS ORDERED: CARBOPROST TROME 250 MCG/ML IM ONE (07:07)
[2021-12-03] MEDS ORDERED: OXYTOCIN/LR 20 UNIT/1,000 ML BAG IV SCH ×2 (07:14→08:00)
[2021-12-03] MEDS ORDERED: Ringers Lactate 1,000 ML IV PRN (07:17)
[2021-12-03] MEDS ORDERED: METHYLERGONOVINE 0.2MG/ML AMP IM PRN (07:17)
[2021-12-03] MEDS ORDERED: IBUPROFEN 600 MG TAB ONE (07:26)
[2021-12-03] MEDS ORDERED: ACETAMINOPHEN 500 MG TAB PO PRN (07:30)
[2021-12-03] MEDS ORDERED: DOCUSATE NA/SENNA CONC 1 TAB PO PRN (07:30)
[2021-12-03] MEDS ORDERED: Oxycodone HCl/Acetaminophen 1 TAB TAB PO PRN ×2 (07:30)
[2021-12-03] MEDS ORDERED: BISACODYL 10 MG RECTAL SUPP PR PRN (07:30)
[2021-12-03] MEDS ORDERED: ONDANSETRON 4 MG (ODT) TAB PO PRN (07:30)
[2021-12-03] MEDS ORDERED: ONDANSETRON 4 MG/2 ML VIAL IV PRN (07:30)
[2021-12-03] MEDS: IBUPROFEN 600 MG TAB PO PRN ×2 (07:32→19:17)
[2021-12-03] MEDS ORDERED: Ringers Lactate 1,000 ML IV SCH (08:00)
[2021-12-03] MEDS ORDERED: KETOROLAC 30 MG/ML INJ IM ONE (08:18)
[2021-12-03] MEDS ORDERED: BUTORPHANOL 1 MG/ML INJ IV ONE (08:18)
[2021-12-03] MEDS ORDERED: BUTORPHANOL 1 MG/ML INJ ONE (08:23)
[2021-12-03] MEDS ORDERED: KETOROLAC 30 MG/ML INJ ONE (08:23)
[2021-12-03 08:49] LABS: Absolute Lymphocytes (CBC) 1.7 K/uL (0.7-4.9); Hematocrit 31.9 % (36.0-45.0); Lymphocytes % 16.6 % (15.3-44.8); MPV 9.5 fL (7.6-11.3); RBC Red Blood Cell Count 3.59 M/uL (3.86-4.86)
[2021-12-03 11:10] VITALS: BMI 24.5
[2021-12-03] MEDS ORDERED: INFLUENZA VACCINE (for 6+ mo) 0.5 ML DOSE IMVAC ONE (12:00)
[2021-12-03 13:23] LABS: Barbiturates NEGATIVE (NEGATIVE); Benzodiazepines NEGATIVE (NEGATIVE); METHAMPHETAM NEGATIVE (NEGATIVE); Methadone NEGATIVE (NEGATIVE); Opiates NEGATIVE (NEGATIVE); Phencyclidine NEGATIVE (NEGATIVE); THC Cannibis NEGATIVE (NEGATIVE)
[2021-12-03 13:24] LABS: Cocaine POSITIVE (NEGATIVE)
[2021-12-04] MEDS ORDERED: Ringers Lactate 2,000 ML IV ONE (02:25)
--- NOTE | 2021-12-04 03:31 | DN ---
Date of Procedure: 12/03/2021 Surgeon: Nathan Perez Delivering Physician: Dr. Nathan Perez. Final Diagnoses: 1.Intrauterine 37 weeks of gestation, delivered. 2.Normal vaginal delivery. 3.Meconium staining of the amniotic fluid. 4.Single live . 5.Precipitous labor. 6.Poor obstetrical history. History: Valeri Altamirano is a G7, P5 black female, 37 weeks of gestation. Stated that she had pr enatal care with Dr. Domínguez early on during the , but later transferred to [facility]. The patient stated that her labor started at approximately 5 a.m. in the morning with no rupture of membr anes, no vaginal bleeding. Labor progressed very quickly. Came into the hospital close to 7 a.m. an d she had her baby approximately at 7:12 a.m. She was evaluated by the nursing staff initially showi ng a stable patient, however, she is 10 cm dilated. I was notified, came into the hospital and iacha sses the patient in her labor bed and notices a bulge in the membrane and baby's head is . I quickly put on some gloves and noticed brownish staining of the amniotic sac and we have taken preca ution for meconium staining. Rupture of membrane was done with the delivery of head gently, followed by delivery of the shoulder, body, and delivery finally completed. Cord was clamped and cut. Baby's nose and mouth were bulb suc tioned. Baby's cord was clamped and cut and baby passed on to the nursing staff. Cord blood obtaine d. The placenta delivered in Schultze presentation. There was no episiotomy, no tears. Total EBL wa s approximately 250 cc and a female baby delivered with scores of 8 and 9. Delivery time was 7 :12 a.m., weight 6 pounds 0 ounces, length 17-3/4 of an inches long. GBS status is unknown. COVID was negative. Maternal blood type is B positive. BW/MODL Voice ID: [id number] Report ID: [id number]
[2021-12-04] MEDS: IBUPROFEN 600 MG TAB PO PRN (05:27)
[2021-12-04] MEDS ORDERED: Tdap (Diph,Pertuss(Acell),Tet Vac) 0.5 ML SYR IMVAC ONE (07:00)
[2021-12-04 07:25] VITALS: BP 100/53; TEMP 97.7
[2021-12-04] MEDS ORDERED: INFLUENZA VACCINE (for 6+ mo) 0.5 ML DOSE IMVAC ONE (08:57)
--- NOTE | 2021-12-04 11:10 | DS ---
Date of Discharge: 12/04/2021 Final Discharge Diagnoses: 1.Intrauterine at term, 37-38 weeks gestational, delivered. 2.Single live . 3.Precipitous labor. 4.Poor obstetrical history. 5.Substance abuse, cocaine. Hospital Course: Valeri Altamirano is a G7, P5, living 4, black female, poor obstetrical history, c tina to the hospital with preseptal labor and ready to deliver her baby, arrived in the hospital in ti me, witnessed of the baby, meconium staining noted, and baby delivered under controlled fash ion. A well baby delivered and care was normal and unremarkable. During the admission, t he patient is positive for cocaine. Social Service contacted and this baby will be kept in the hospi catie until further evaluation by Social Service, possible Child Protective Service. The patient is aw are of the situation and did not challenge me on this issue. During the next day, she was very coope rative and alert and her examination was benign and normal. A bedside instruction was given to her w ith the followup care. She requested her vitamin. A prescription was given. She also was given a prescription for ibuprofen 800 mg #20 one tab p.o. t.i.d. was given. Disposition is home and a prescription for vitamins and ibuprofen. Followup care 2-4 weeks depending on the clinic and the patient discharged in good and stable condition along without the baby and she understood he r instructions. NIECY/DANIELLE Voice ID: [id number] Report ID: [id number]
[2021-12-04 21:36] LABS: RPR (Rapid Plasma Reagin) REACTIVE (NON-REACT)
== END 2021-12-04 10:03 | disposition home or self-care (01) | DRG 806 ==
LOC: L&D 06:53 → 2ND-WC 07:00
PROVIDERS: ADMIT Specialist; ATTEND Specialist
PROC: 10E0XZZ Delivery of Products of Conception, External Approach (ICD-10-PCS; principal; 2021-12-03)
PROC: 3E033VJ Introduction of Other Hormone into Peripheral Vein, Percutaneous Approach (ICD-10-PCS; 2021-12-03)
DX: O77.0 Labor and delivery complicated by meconium in amniotic fluid (principal); O99.324 Drug use complicating childbirth; Z37.0 Single live birth; F14.10 Cocaine abuse, uncomplicated; F15.10 Other stimulant abuse, uncomplicated; Z3A.37 37 weeks gestation of pregnancy; Z23 Encounter for immunization; Z20.822 Contact with and (suspected) exposure to COVID-19
CPT/HCPCS: 36415; 80307; 85014; 85025; 86592; 86593; 86762; 86780; 86901; 87340; 90471; 90715; G0433; J0595; J2210; J2590; J7120; Q2035; U0003